=== PATIENT | female | born 2005 | race African-American/Black ===

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

== ENCOUNTER 2023-02-04 21:19 | Inpatient (IN) | payer MEDICAID, OTHER ==
--- NOTE | 2023-02-04 22:45 | ED ---
General Adult HPI - General Chief complaint: Psychiatric Symptoms Stated complaint: mental Health issues Time Seen by Provider: 02/04/23 22:11 Source: patient, RN notes reviewed Mode of arrival: ambulatory Limitations: no limitations - History of Present Illness Initial comments: 17-year-old female presents to the emergency department for chief complaint of mental health issues. She states that she has a history of pressure for which she is not taking any medications. She states that she has been hospitalized many times for her mental health. She reports worsening depression for the past 2 weeks. She reports suicidal ideation for the past 3-4 days without plan. Patient admits to self harm. Denies hallucinations, delusions. Denies fevers, c [place], shortness of breath, chest pain, abdominal pain. She reports having a bad reaction to Depakote. - Related Data Home Medications Medication Instructions Recorded Confirmed [place] 1 tab PO DAILY 02/04/23 02/04/23 Previous Rx's Medication Instructions Recorded Venlafaxine HCl ER [Effexor XR] 75 mg PO HS 7 Days #7 cap 02/09/23 cloNIDine HCL [Catapres] 0.1 mg PO BID 7 Days #14 tab 02/09/23 Allergies Allergy/AdvReac Type Severity Reaction Status Date / Time gluten AdvReac Abdominal Verified 02/05/23 04:38 Pain lactose AdvReac Abdominal Verified 02/05/23 04:38 Pain Review of Systems ROS Statement: Those systems with pertinent positive or pertinent negative responses have been documented in the HPI. ROS Other: All systems not noted in ROS Statement are negative. Past Medical History Past Medical History: No Reported History Additional Past Medical History / Comment(s): conduct disorder, mood disorder History of Any Multi-Drug Resistant Organisms: None Reported Past Surgical History: No Surgical Hx Reported Past Psychological History: ADD/ADHD, Anxiety, Bipolar, PTSD Smoking Status: Never smoker Past Alcohol Use History: None Reported Past Drug Use History: None Reported General Exam Limitations: no limitations General appearance: alert, in no apparent distress Head exam: Present: atraumatic, normocephalic, normal inspection Eye exam: Present: normal appearance, PERRL, EOMI. Absent: scleral icterus, conjunctival injection, periorbital swelling ENT exam: Present: normal exam, mucous membranes moist Neck exam: Present: normal inspection. Absent: tenderness, meningismus, lymphadenopathy Respiratory exam: Present: normal lung sounds bilaterally. Absent: respiratory distress, wheezes, rales, rhonchi, stridor Cardiovascular Exam: Present: regular rate, normal rhythm, normal heart sounds. Absent: systolic murmur, diastolic murmur, rubs, gallop, clicks GI/Abdominal exam: Present: soft, normal bowel sounds. Absent: distended, tenderness, guarding, rebound, rigid Extremities exam: Present: full ROM, normal capillary refill, other (abrasions to left arm from self harm) Back exam: Present: normal inspection Neurological exam: Present: alert, oriented X3 Psychiatric exam: Present: depressed Skin exam: Present: warm, dry, normal color, abrasion (left arm). Absent: rash Course Vital Signs 02/04/23 02/05/23 21:34 02:03 Temperature 98.4 F 97.8 F Pulse Rate 82 Pulse Rate [ 73 Right Sitting] Respiratory 18 18 Rate Blood Pressure 134/86 Blood Pressure 121/73 [Right Arm Sitting] O2 Sat by Pulse 99 99 Oximetry Medical Decision Making - Medical Decision Making Was pt. sent in by a medical professional or institution (, PA, DIRECTOR OF REGULATORY AFFAIRS, urgent care, hospital, or fci...) When possible be specific @ -No Did you speak to anyone other than the patient for history (EMS, parent, family, police, friend...)? What history was obtained from this source @ -No Did you review nursing and triage notes (agree or disagree)? Why? @ -I reviewed and agree with nursing and triage notes Were old charts reviewed (outside hosp., previous admission, EMS record, old EKG, old radiological studies, urgent care reports/EKG's, fci records)? Report findings @ -No old charts were reviewed Differential Diagnosis (chest pain, altered mental status, abdominal pain women, abdominal pain men, vaginal bleeding, weakness, fever, dyspnea, syncope, headache, dizziness, GI bleed, back pain, seizure, CVA, palpatations, mental health, musculoskeletal)? @ -Differential Mental Health Depression, anxiety, bipolar, psychosis, schizophrenia, borderline personality, situational depression, adjustment disorder, behavioral disorder, brain tumor, malingering, substance abuse, encephalopathy, medication reaction, dementia, hypothyroidism, degenerative neurologic disorder, lupus.... This is not meant to be all-inclusive list EKG interpreted by me (3pts min.). @ -None X-rays interpreted by me (1pt min.). @ -None done CT interpreted by me (1pt min.). @ -None done U/S interpreted by me (1pt. min.). @ -None done What testing was considered but not performed or refused? (CT, X-rays, U/S, labs)? Why? @ -None What meds were considered but not given or refused? Why? @ -None Did you discuss the management of the patient with other professionals (professionals i.e. , PA, DIRECTOR OF REGULATORY AFFAIRS, lab, RT, psych nurse, sexual assault social worker, endless belt finisher, teacher, chief lifestyle officer, patient case coordinator)? Give summary @ -No Was smoking cessation discussed for >3mins.? @ -No Was critical care preformed (if so, how long)? @ -No Were there social determinants of health that impacted care today? How? (Homelessness, low income, unemployed, alcoholism, drug addiction, transportation, low edu. Level, literacy, decrease access to med. care, usp, rehab)? @ -No Was there de-escalation of care discussed even if they declined (Discuss DNR or withdrawal of care, Hospice)? DNR status @ -No What co-morbidities impacted this encounter? (DM, HTN, Smoking, COPD, CAD, Cancer, CVA, ARF, Chemo, Hep., AIDS, mental health diagnosis, sleep apnea, morbid obesity)? @ -None Was patient admitted / discharged? Hospital course, mention meds given and route, prescriptions, significant lab abnormalities, going to OR and other pertinent info. @ -Patient presented to the emergency department with worsening mental health issues 2 weeks and suicidal ideation 3-4 days. Patient has a history of self- harm and has multiple abrasions on her left arm. She reports multiple Hospital in the past for her mental health. Patient is not having any concerning physical symptoms at this time including shortness of breath, chest pain, abdominal pain, fever. She takes oral contraceptive pills but no other daily medications. Vital signs stable. Patient is awaiting EPS evaluation. Patient admitted inpatient to this hospital. Undiagnosed new problem with uncertain prognosis? @ -No Drug Therapy requiring intensive monitoring for toxicity (Heparin, Nitro, Insulin, Cardizem)? @ -No Were any procedures done? @ -No Diagnosis/symptom? @ -suicidal ideation Acute, or Chronic, or Acute on Chronic? @ -Acute Uncomplicated (without systemic symptoms) or Complicated (systemic symptoms)? @ - Side effects of treatment? @ -No Exacerbation, Progression, or Severe Exacerbation? @ -No Poses a threat to life or bodily function? How? (Chest pain, USA, IA, pneumonia, PE, COPD, DKA, ARF, appy, cholecystitis, CVA, Diverticulitis, Homicidal, Suicidal, threat to staff... and all critical care pts) @ -Yes suicidal - Lab Data Result diagrams: 02/06/23 08:26 02/06/23 08:26 Lab Results 02/05/23 02/05/23 02/05/23 Range/Units 00:13 00:13 00:13 Urine Color Colorless Urine Appearance Clear (Clear) Urine pH 6.0 (5.0-8.0) Ur Specific [place] 1.004 (1.001-1.035) Urine Protein Negative (Negative) Urine Glucose (UA) Negative (Negative) Urine Ketones Negative (Negative) Urine Blood Negative (Negative) Urine Nitrite Negative (Negative) Urine Bilirubin Negative (Negative) Urine Urobilinogen 0.2 (<2.0) mg/dL Ur Leukocyte Esterase Negative (Negative) Urine HCG, Qual Not Detected (Not Detectd) Urine Opiates Screen Not Detected (NotDetected) Ur Oxycodone Screen Not Detected (NotDetected) Urine Methadone Screen Not Detected (NotDetected) Ur Propoxyphene Screen Not Detected (NotDetected) Ur Barbiturates Screen Not Detected (NotDetected) U Tricyclic Antidepress Not Detected (NotDetected) Ur Phencyclidine Scrn Not Detected (NotDetected) Ur Amphetamines Screen Not Detected (NotDetected) U Methamphetamines Scrn Not Detected (NotDetected) U Benzodiazepines Scrn Not Detected (NotDetected) Urine Cocaine Screen Not Detected (NotDetected) U Marijuana (THC) Screen Not Detected (NotDetected) Coronavirus (PCR) (Not Detectd) 02/05/23 Range/Units 01:08 Urine Color Urine Appearance (Clear) Urine pH (5.0-8.0) Ur Specific [place] (1.001-1.035) Urine Protein (Negative) Urine Glucose (UA) (Negative) Urine Ketones (Negative) Urine Blood (Negative) Urine Nitrite (Negative) Urine Bilirubin (Negative) Urine Urobilinogen (<2.0) mg/dL Ur Leukocyte Esterase (Negative) Urine HCG, Qual (Not Detectd) Urine Opiates Screen (NotDetected) Ur Oxycodone Screen (NotDetected) Urine Methadone Screen (NotDetected) Ur Propoxyphene Screen (NotDetected) Ur Barbiturates Screen (NotDetected) U Tricyclic Antidepress (NotDetected) Ur Phencyclidine Scrn (NotDetected) Ur Amphetamines Screen (NotDetected) U Methamphetamines Scrn (NotDetected) U Benzodiazepines Scrn (NotDetected) Urine Cocaine Screen (NotDetected) U Marijuana (THC) Screen (NotDetected) Coronavirus (PCR) Not Detected (Not Detectd) Disposition Clinical Impression: Suicidal ideation Disposition: ADMITTED IP TO THIS [facility] Condition: Stable Is patient prescribed a controlled substance at d/c from ED?: No
[2023-02-05 00:44] LABS: Amphetamine Screen,Urine Not Detected (NotDetected); Barbiturate Screen,Urine Not Detected (NotDetected); Benzodiazepines Screen,Urine Not Detected (NotDetected); Cocaine Screen,Urine Not Detected (NotDetected); Methadone Screen, Urine Not Detected (NotDetected); Opiate Screen,Urine Not Detected (NotDetected); Oxycodone Screen, Urine Not Detected (NotDetected); Phencyclidine Screen,Urine Not Detected (NotDetected); Tricyclic Antidepressant,Urine Not Detected (NotDetected); Urn Cannabinoid Scrn Not Detected (NotDetected)
[2023-02-05] MEDS ORDERED: hydrOXYzine HCL 50 MG/ML 1 ML VIAL IM PRN (02:04)
[2023-02-05] MEDS ORDERED: OLANZapine 5 MG TAB PO PRN (02:04)
[2023-02-05] MEDS ORDERED: ACETAMINOPHEN TAB 325 MG TAB PO PRN (02:04)
[2023-02-05] MEDS ORDERED: IBUPROFEN 600 MG TAB PO PRN (02:04)
[2023-02-05] MEDS ORDERED: hydrOXYzine HCL 25 MG TAB PO PRN (02:04)
[2023-02-05] MEDS ORDERED: OLANZapine 10 MG VIAL IM PRN (02:08)
[2023-02-05 02:42] LABS: Appearance,Urine Clear (Clear); Bilirubin,Urine Negative (Negative); Blood,Urine Negative (Negative); Color,Urine Colorless; Glucose,Urine (UA) Negative (Negative); Ketones,Urine Negative (Negative); Leukocyte Esterase,Urine Negative (Negative); Nitrite,Urine Negative (Negative); Protein,Urine Negative (Negative); Specific Gravity,Urine 1.004 (1.001-1.035); Urobilinogen,Urine 0.2 mg/dL (<2.0)
[2023-02-05] MEDS ORDERED: ALTAVERA PO SCH (09:00)
[2023-02-05] MEDS: MAG HYDROX/AL HYDROX/SIMETH 30 ML CUP PO PRN (09:18)
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
[2023-02-05] MEDS: MAGNESIUM HYDROXIDE 2,400 MG/30 ML CUP PO PRN (11:44)
[2023-02-05] MEDS: ALTAVERA PO SCH (11:45)
[2023-02-05] MEDS: cloNIDine HCL 0.1 MG TAB PO SCH (21:10)
[2023-02-05] MEDS: VENLAFAXINE HCL ER 75 MG CAP PO SCH (21:10)
--- NOTE | 2023-02-06 03:43 | P.PN ---
Progress Note - Text Progress Note Date: 02/06/23 refused medical evaluation
[2023-02-06] MEDS: cloNIDine HCL 0.1 MG TAB PO SCH ×2 (09:05→20:41)
[2023-02-06] MEDS: ALTAVERA PO SCH (09:06)
[2023-02-06 09:07] LABS: ALT 18 U/L (4-34); AST 22 U/L (14-36); African American GFR (CKD) >90 (>60 ml/min/1.73 sqM); Albumin 4.2 g/dL (3.5-5.0); Alkaline Phosphatase 49 U/L (38-126); Anion Gap 8 mmol/L; Blood Urea Nitrogen 14 mg/dL (7-17); Calcium 9.1 mg/dL (8.4-10.2); Carbon Dioxide 25 mmol/L (22-30); Chloride 102 mmol/L (98-107); Glucose 92 mg/dL (74-99); Non-African American GFR(CKD) >90 (>60 ml/min/1.73 sqM); Potassium 4.4 mmol/L (3.5-5.1); Sodium 135 mmol/L (137-145); Total Bilirubin 0.6 mg/dL (0.2-1.3); Total Protein 7.4 g/dL (6.3-8.2)
[2023-02-06 09:15] LABS: Basophils % (A) 1 %; Eosinophils % (A) 1 %; HCT 42.7 % (34.0-46.0); HGB 14.5 gm/dL (11.4-16.0); Lymphocytes # (A) 2.4 k/uL (1.0-4.8); Lymphocytes % (A) 43 %; MCH 32.7 pg (25.0-35.0); MCHC 33.8 g/dL (31.0-37.0); MCV 96.7 fL (80.0-100.0); Mean Platelet Volume 11.8; Monocytes # (A) 0.2 k/uL (0-1.0); Monocytes % (A) 4 %; Neutrophils # (A) 2.8 k/uL (1.3-7.7); Neutrophils % (A) 50 %; Platelet Count 179 k/uL (150-450); RBC 4.42 m/uL (3.80-5.40); RDW 12.6 % (11.5-15.5); WBC 5.6 k/uL (4.0-11.0)
--- NOTE | 2023-02-06 11:13 | P.PN ---
Subjective Progress Note Date: 02/06/23 Principal diagnosis: IMPRESSIONS: Major depressive disorder Posttraumatic stress disorder Cluster B personality disorder - borderline personality disorder and histrionic personality disorder Patient Name: Codi Kwon Date of : [birth year] Patient Status: Inpatient Attending Provider: Dave Nunez Subjective data: Patient admits that she has a history of cutting on herself for a long period of time She says that she currently lives with her boyfriend and is not sure as to why he continues to live with her She says that is normal and does not have any medical problems She says that she usually spends most of her time sitting around and brooding She says that she needs to change but has never worked on making things any different for herself She admits that she never finished high school and has no intention on working She does not know what she wants to do for the future She admits that she has been multiple suicide attempts and that she's had about 15 hospitalizations in the past She said that she has not seen her therapist for the last 8 months and she does start taking more interest in getting herself better MENTAL STATUS EXAM: General Appearance: Patient appears to be stated age is alert, directable, and attempts to cooperate. Patient appears to have slightly disheveled hygiene and grooming. Curly hair. Nose piercing. Multiple superficial cuts on her left arm at various stages of healing. Behavior: Patient is seated without any agitated behavior. Normal psychomotor activity. Eye contact is appropriate. Speech: Patient's speech is fluent and nonpressured. Hyperverbal. Interruptible. Mood/Affect: Patient reports their mood is depressed, affect is incongruent and appears to be expansive and bright. Nonchalant. Suicidality/Homicidality: Patient reports chronic suicidal ideation. She reports no intention or plan at this time. She denies any homicidal ideation, intention, and/or plan. Perceptions: Patient denies any visual hallucinations and denies any auditory hallucinations Though content/process: There is no evidence of any delusional thought content and thought process is linear and goal-directed. Memory and concentration: AOX3, grossly intact for the purposes of this session. Judgment and insight: poor STRENGTHS/WEAKNESSES: Strength is that the patient is resilient. Weakness is that the patient has poor frustration tolerance and impulse control. INTELLECT: average IMPRESSIONS: Major depressive disorder Posttraumatic stress disorder Cluster B personality disorder - suspect makes of borderline personality disorder and histrionic personality disorder PLAN: -Patient is admitted under voluntary status to MHU for stabilization of psychiat ness symptoms and safety. Patient signed adult voluntary form and medication consent and is placed in patient's chart. -Medications : Catapres 0.1 mg by mouth twice a day for PTSD Effexor XR 75 mg by mouth at bedtime for PTSD/depression/anxiety -Zyprexa and Vistaril PRN for agitation/aggression -Patient was informed of the risks, benefits and side effects of the medication and patient verbally consented to taking the medications. Patient signed med consent form and was placed in chart. -Internal Medicine consult to perform medical evaluation and physical. -SW on board for discharge planning. Encourage patient to participate in groups to work on coping skills. Thong Howell M.D. 02/06/2023 Objective - Vital Signs Vital signs: Vital Signs Temp 98.1 F 02/06/23 06:31 Pulse 59 L 02/06/23 06:31 Resp 17 02/06/23 06:31 BP 121/73 02/05/23 02:03 Pulse Ox 99 02/06/23 06:31 FiO2 - Labs CBC & Chem 7: 02/06/23 08:26 02/06/23 08:26 Labs: Abnormal Lab Results - Last 24 Hours (Table) 02/06/23 Range/Units 08:26 Sodium 135 L (137-145) mmol/L
[2023-02-06 11:50] LABS: Large Platelets Present; RBC Morphology Normal
[2023-02-06 15:01] VITALS: BMI 19.5
[2023-02-06 15:26] LABS: Chol/HDL Ratio 1.71 Ratio; LDL Cholesterol,Calculated 41.1 mg/dL (0.0-131.0); VLDL Calculation 10.52 mg/dL (5.00-40.00)
[2023-02-06] MEDS: VENLAFAXINE HCL ER 75 MG CAP PO SCH (20:41)
--- NOTE | 2023-02-07 03:03 | P.CONS ---
History of Present Illness - Reason for Consult Consult date: 02/07/23 - History of Present Illness The patient is a 17-year-old female with no known PMH who had presented to the emergency room with complaints of depression and suicidal ideation. The patient was admitted to the mental health unit where she was seen and evaluated the mental health unit RN present for the entire time. The patient reports that she has been having a lot of stress recently due to her family. She reports mult iple family problems that she reports that she does not wish to state. She denied any physical complaints however. She denied experiencing chest discomfort, shortness of breath, fever, chills, cough, nausea, vomiting, abdominal pain, diarrhea. The patient denied alcohol, substance, or tobacco use Review of systems: Pertinent positives and negatives as discussed in HPI, a complete review of sys tems was performed and all other systems are negative. Physical examination: General: non toxic, no distress, appears at stated age, normal weight Derm: no unusual rashes/lesions, no unusual ecchymoses, warm, dry Head: atraumatic, normocephalic, symmetric Eyes: EOMI, no lid lag, anicteric sclera ENT: Nose and ears atraumatic, no thrush, no pharyngeal erythema Neck: trachea midline, supple Mouth: no lip lesion, mucus membranes moist Cardiovascular: S1S2 reg, no murmur, no edema Lungs: CTA bilateral, no rhonchi, no rales , no accessory muscle use Abdominal: soft, nontender to palpation, no guarding Ext: no gross muscle atrophy, no contractures, Neuro: No gross focal neuro deficits noted Psych: Alert, oriented, appropriate affect Assessment: Depression and suicidal ideation Imaging: None performed Plan: Defer management to the primary psychiatry service Thank you for allowing us to participate in the care of this patient. We will follow peripherally. Do not hesitate to contact us with questions. Someone can be reached from the [facility] hospitalist group at all hours of the day at [phone]. Past Medical History Past Medical History: No Reported History Additional Past Medical History / Comment(s): conduct disorder, mood disorder History of Any Multi-Drug Resistant Organisms: None Reported Past Surgical History: No Surgical Hx Reported Past Psychological History: ADD/ADHD, Anxiety, Bipolar, PTSD Smoking Status: Never smoker Past Alcohol Use History: None Reported Past Drug Use History: None Reported Medications and Allergies Home Medications Medication Instructions Recorded Confirmed Type [place] 1 tab PO DAILY 02/04/23 02/04/23 History Allergies Allergy/AdvReac Type Severity Reaction Status Date / Time gluten AdvReac Abdominal Verified 02/05/23 04:38 Pain lactose AdvReac Abdominal Verified 02/05/23 04:38 Pain Physical Exam Vitals: Vital Signs Temp Pulse Resp Pulse Ox 02/06/23 06:31 98.1 F 59 L 17 99 Intake and Output 02/06/23 02/06/23 02/07/23 14:59 22:59 06:59 Other: Weight 56.5 kg Results CBC & Chem 7: 02/06/23 08:26 02/06/23 08:26 Labs: Abnormal Lab Results - Last 24 Hours (Table) 02/06/23 Range/Units 08:26 Sodium 135 L (137-145) mmol/L HDL Cholesterol 72.40 H (40.00-60.00) mg/dL
[2023-02-07] MEDS: ALTAVERA PO SCH (08:59)
[2023-02-07] MEDS: cloNIDine HCL 0.1 MG TAB PO SCH ×2 (09:00→20:40)
--- NOTE | 2023-02-07 09:50 | P.PN ---
Subjective Progress Note Date: 02/07/23 Principal diagnosis: IMPRESSIONS: Major depressive disorder Posttraumatic stress disorder Cluster B personality disorder - borderline personality disorder and histrionic personality disorder Patient Name: Codi Kwon Date of : [birth year] Patient Status: Inpatient Attending Provider: Dave Nunez Subjective data: Patient admits that she feels better however when asked if this is a good sign and that she is ready for discharge soon patient states that "I wish" Patient says that she needs few more days to put herself together She also admits that she has a eating disorder and that she tends to not eating enough but denies any abuse of laxatives or exercising She denies any binging and purging behavior Remained superficial and withdrawn MENTAL STATUS EXAM: General Appearance: Patient appears to be stated age is alert, directable, and attempts to cooperate. Patient appears to have slightly disheveled hygiene and grooming. Curly hair. Nose piercing. Multiple superficial cuts on her left arm at various stages of healing. Behavior: Patient is seated without any agitated behavior. Normal psychomotor activity. Eye contact is appropriate. Speech: Patient's speech is fluent and nonpressured. Hyperverbal. Interruptible. Mood/Affect: Patient reports their mood is depressed, affect is incongruent and appears to be expansive and bright. Nonchalant. Suicidality/Homicidality: Patient reports chronic suicidal ideation. She reports no intention or plan at this time. She denies any homicidal ideation, intention, and/or plan. Perceptions: Patient denies any visual hallucinations and denies any auditory hallucinations Though content/process: There is no evidence of any delusional thought content and thought process is linear and goal-directed. Memory and concentration: AOX3, grossly intact for the purposes of this session. Judgment and insight: poor STRENGTHS/WEAKNESSES: Strength is that the patient is resilient. Weakness is that the patient has poor frustration tolerance and impulse control. 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 Patient signed adult voluntary form and medication consent and is placed in patient's chart. -Medications : Catapres 0.1 mg by mouth twice a day for PTSD Effexor XR 75 mg by mouth at bedtime for PTSD/depression/anxiety -Zyprexa and Vistaril PRN for agitation/aggression -Patient was informed of the risks, benefits and side effects of the medication and patient verbally consented to taking the medications. Patient signed med consent form and was placed in chart. -Internal Medicine consult to perform medical evaluation and physical. -SW on board for discharge planning. Encourage patient to participate in groups to work on coping skills. Thong Howell M.D. 02/07/2023 Objective - Vital Signs Vital signs: Vital Signs Temp 97.5 F L 02/07/23 06:52 Pulse 60 02/07/23 09:00 Resp 16 02/07/23 06:52 BP 106/68 02/07/23 09:00 Pulse Ox 99 02/07/23 06:52 FiO2 Intake & Output 02/06/23 02/07/23 02/07/23 18:59 06:59 18:59 Weight 56.5 kg - Labs CBC & Chem 7: 02/06/23 08:26 02/06/23 08:26 Labs: Abnormal Lab Results - Last 24 Hours (Table) 02/06/23 Range/Units 08:26 HDL Cholesterol 72.40 H (40.00-60.00) mg/dL
[2023-02-07] MEDS: MAGNESIUM HYDROXIDE 2,400 MG/30 ML CUP PO PRN (14:42)
[2023-02-07] MEDS: MAG HYDROX/AL HYDROX/SIMETH 30 ML CUP PO PRN (18:33)
[2023-02-07] MEDS: VENLAFAXINE HCL ER 75 MG CAP PO SCH (20:40)
[2023-02-08 06:32] VITALS: TEMP 97.8
[2023-02-08] MEDS: cloNIDine HCL 0.1 MG TAB PO SCH ×2 (08:45→21:46)
[2023-02-08] MEDS: ALTAVERA PO SCH (08:46)
--- NOTE | 2023-02-08 11:28 | P.PN ---
Progress Note - Text Progress Note Date: 02/08/23 Interval History: Patient was seen resting in bed and was directable and agreeable to speak with writer editor in the office., The patient is not reporting any suicidal or homicidal ideation, intention, and/or plan. She is not reporting any auditory or visual hallucinations. She denies any paranoia or other delusions. She reports feeling fatigued due to the medications. Furthermore, the patient reports that she has a larger pupil on her right eye compared to her left. This can be a side effect of her antidepressant medication. She is denying any blurry vision or headache. She states that she has been able to speak with her mother as well as her boyfriend. She states that they are still together. She is in agreement with the diagnosis of borderline personality disorder. Mental Status Exam: General Appearance: Patient appears to be stated age is alert, directable, and cooperative. Behavior: Patient is calmly seated without any agitated behavior. Speech: Patient's speech is fluent and nonpressured. Mood/Affect: Mood is improving mildly, affect is congruent and expansive. Suicidality/Homicidality: Patient reports no suicidal or homicidal ideation. Perceptions: Patient denies any visual hallucinations and denies any auditory hallucinations Though content/process: There is no evidence of any delusional thought content and thought process is linear and goal-directed. Memory and concentration: AOX3, grossly intact for the purposes of this session Judgment and insight: Improving mildly Vital Signs Temp 97.8 F 02/08/23 06:32 Pulse 61 02/08/23 08:47 Resp 16 02/08/23 06:32 BP 127/76 02/08/23 08:47 Pulse Ox 99 02/08/23 06:32 FiO2 Assessment Major depressive disorder Posttraumatic stress disorder Cluster B personality disorder -suspect a mix of borderline personality disorder and histrionic personality disorder Plan: -Patient continues to meet criteria for inpatient psychiatric admission for symptom stabilization and safety. Patient has signed adult voluntary form and medication consent and was placed in patient's chart. -Approximately 20 minutes are spent firing the patient with therapy. -Medications: Catapres 0.1 mg by mouth twice a day for PTSD Effexor XR 75 mg by mouth at bedtime for PTSD/depression/anxiety -Will hold on titration of Effexor due to anisicoria. -When necessary Zyprexa and Vistaril for agitation/aggression. -SW on board for discharge planning. Encouraged the patient to participate in milieu.
[2023-02-08] MEDS: VENLAFAXINE HCL ER 75 MG CAP PO SCH (21:46)
[2023-02-09 06:53] VITALS: BP 108/67; PULSE 88; RESP 17
[2023-02-09] MEDS: cloNIDine HCL 0.1 MG TAB PO SCH (08:48)
[2023-02-09] MEDS: ALTAVERA PO SCH (08:48)
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
[2023-02-09] MEDS: MAG HYDROX/AL HYDROX/SIMETH 30 ML CUP PO PRN (12:45)
== END 2023-02-09 14:44 | disposition home or self-care (01) | DRG 754 ==
LOC: EC 21:19 → 3MHU 02-05 02:01
PROVIDERS: ADMIT Psychiatry & Neurology Psychiatry; ATTEND Psychiatry & Neurology Psychiatry
DX: F32.9 Major depressive disorder, single episode, unspecified (principal); R45.851 Suicidal ideations; Z20.822 Contact with and (suspected) exposure to COVID-19; F43.10 Post-traumatic stress disorder, unspecified; F60.3 Borderline personality disorder; K90.41 Non-celiac gluten sensitivity; F60.4 Histrionic personality disorder; F90.9 Attention-deficit hyperactivity disorder, unspecified type; Z76.5 Malingerer [conscious simulation]; Z79.899 Other long term (current) drug therapy; Z91.410 Personal history of adult physical and sexual abuse; Z91.51 Personal history of suicidal behavior; Z91.52 Personal history of nonsuicidal self-harm; Z91.011 Allergy to milk products
CPT/HCPCS: 80053; 80061; 80306; 81003; 81025; 82075; 83036; 84443; 85025; 87635; 99285

== ENCOUNTER 2023-04-29 11:40 | Observation (INO) | payer OTHER ==
--- NOTE | 2023-04-29 12:52 | ED ---
Psych HPI - General Chief Complaint: Psychiatric Symptoms Stated Complaint: mental health Time Seen by Provider: 04/29/23 12:30 Source: patient, RN notes reviewed, old records reviewed, Caregiver Mode of arrival: ambulatory Limitations: no limitations - History of Present Illness Initial Comments: This is a 18-year-old female DF for evaluation of psychiatric illness. Patient Mariam was feeling some thoughts of severe depression. MD Complaint: suicidal ideation, feels depressed -: days(s) Associated Psychiatric Symptoms: depression, suicidal ideation History of same: Yes Quality: constant Improves With: none Worsens With: none Context: not taking psychiatric medications, significant life stressor Associated Symptoms: denies other symptoms - Related Data Home Medications Medication Instructions Recorded Confirmed [place] 1 tab PO DAILY 02/04/23 04/29/23 Venlafaxine HCl [Effexor XR] 150 mg PO DAILY 04/29/23 04/29/23 Previous Rx's Medication Instructions Recorded cloNIDine HCL [Catapres] 0.1 mg PO BID 7 Days #14 tab 02/09/23 Allergies Allergy/AdvReac Type Severity Reaction Status Date / Time gluten AdvReac Abdominal Verified 04/29/23 14:11 Pain lactose AdvReac Abdominal Verified 04/29/23 14:11 Pain Review of Systems ROS Statement: Those systems with pertinent positive or pertinent negative responses have been documented in the HPI. ROS Other: All systems not noted in ROS Statement are negative. Past Medical History Past Medical History: No Reported History Additional Past Medical History / Comment(s): conduct disorder, mood disorder History of Any Multi-Drug Resistant Organisms: None Reported Past Surgical History: No Surgical Hx Reported Past Psychological History: ADD/ADHD, Anxiety, Bipolar, PTSD Smoking Status: Never smoker Past Alcohol Use History: None Reported Past Drug Use History: None Reported General Exam Limitations: no limitations General appearance: alert, in no apparent distress Head exam: Present: atraumatic, normocephalic, normal inspection Eye exam: Present: normal appearance, PERRL, EOMI. Absent: scleral icterus, conjunctival injection, periorbital swelling ENT exam: Present: normal exam, mucous membranes moist Neck exam: Present: normal inspection. Absent: tenderness, meningismus, lymphadenopathy Respiratory exam: Present: normal lung sounds bilaterally. Absent: respiratory distress, wheezes, rales, rhonchi, stridor Cardiovascular Exam: Present: regular rate, normal rhythm, normal heart sounds. Absent: systolic murmur, diastolic murmur, rubs, gallop, clicks GI/Abdominal exam: Present: soft, normal bowel sounds. Absent: distended, tenderness, guarding, rebound, rigid Extremities exam: Present: normal inspection, full ROM, normal capillary refill. Absent: tenderness, pedal edema, joint swelling, calf tenderness Back exam: Present: normal inspection Neurological exam: Present: alert, oriented X3, CN II-XII intact Psychiatric exam: Present: normal affect, normal mood Skin exam: Present: warm, dry, intact, normal color. Absent: rash Course Vital Signs 04/29/23 04/30/23 04/30/23 11:42 06:15 08:00 Temperature 97.7 F 97.7 F 98.2 F Pulse Rate 86 66 82 Respiratory 16 18 17 Rate Blood Pressure 126/87 112/68 131/82 O2 Sat by Pulse 97 98 98 Oximetry - Reevaluation(s) Reevaluation #1: 04/29/23 13:11 Medical records reviewed Reevaluation #2: 04/29/23 13:11 Medical clear for psychiatric evaluation Medical Decision Making - Medical Decision Making 18 female seen By psychiatry here in the ER, patient will be admitted for inpatient psychiatric evaluation and treatment - Lab Data Result diagrams: 04/29/23 16:30 04/29/23 19:00 Lab Results 04/29/23 04/29/23 04/29/23 Range/Units 13:24 13:24 13:25 WBC (4.0-11.0) k/uL RBC (3.80-5.40) m/uL Hgb (11.4-16.0) gm/dL Hct (34.0-46.0) % MCV (80.0-100.0) fL MCH (25.0-35.0) pg MCHC (31.0-37.0) g/dL RDW (11.5-15.5) % Plt Count (150-450) k/uL MPV Sodium (137-145) mmol/L Potassium (3.5-5.1) mmol/L Chloride (98-107) mmol/L Carbon Dioxide (22-30) mmol/L Anion Gap mmol/L BUN (7-17) mg/dL Creatinine (0.52-1.04) mg/dL Est GFR (CKD-EPI)AfAm (>60 ml/min/1.73 sqM) Est GFR (CKD-EPI)NonAf (>60 ml/min/1.73 sqM) Glucose (74-99) mg/dL Calcium (8.4-10.2) mg/dL Urine Color Colorless Urine Appearance Clear (Clear) Urine pH 6.0 (5.0-8.0) Ur Specific [place] 1.004 (1.001-1.035) Urine Protein Negative (Negative) Urine Glucose (UA) Negative (Negative) Urine Ketones Negative (Negative) Urine Blood Negative (Negative) Urine Nitrite Negative (Negative) Urine Bilirubin Negative (Negative) Urine Urobilinogen <2.0 (<2.0) mg/dL Ur Leukocyte Esterase Negative (Negative) Urine HCG, Qual Not Detected (Not Detectd) Urine Opiates Screen Not Detected (NotDetected) Ur Oxycodone Screen Not Detected (NotDetected) Urine Methadone Screen Not Detected (NotDetected) Ur Propoxyphene Screen Not Detected (NotDetected) Ur Barbiturates Screen Not Detected (NotDetected) U Tricyclic Antidepress Not Detected (NotDetected) Ur Phencyclidine Scrn Not Detected (NotDetected) Ur Amphetamines Screen Not Detected (NotDetected) U Methamphetamines Scrn Not Detected (NotDetected) U Benzodiazepines Scrn Not Detected (NotDetected) Urine Cocaine Screen Not Detected (NotDetected) U Marijuana (THC) Screen Not Detected (NotDetected) Coronavirus (PCR) (Not Detectd) Influenza Type A (PCR) (Not Detectd) Influenza Type B (PCR) (Not Detectd) RSV (PCR) (Not Detectd) SARS-CoV-2 (PCR) (Not Detectd) 04/29/23 04/29/23 04/29/23 Range/Units 16:30 16:30 19:00 WBC 5.3 (4.0-11.0) k/uL RBC 4.79 (3.80-5.40) m/uL Hgb 15.0 (11.4-16.0) gm/dL Hct 45.0 (34.0-46.0) % MCV 94.0 (80.0-100.0) fL MCH 31.4 (25.0-35.0) pg MCHC 33.4 (31.0-37.0) g/dL RDW 12.2 (11.5-15.5) % Plt Count 153 (150-450) k/uL MPV 12.9 Sodium 137 (137-145) mmol/L Potassium 3.9 (3.5-5.1) mmol/L Chloride 103 (98-107) mmol/L Carbon Dioxide 25 (22-30) mmol/L Anion Gap 9 mmol/L BUN 10 (7-17) mg/dL Creatinine 0.72 (0.52-1.04) mg/dL Est GFR (CKD-EPI)AfAm >90 (>60 ml/min/1.73 sqM) Est GFR (CKD-EPI)NonAf >90 (>60 ml/min/1.73 sqM) Glucose 130 H (74-99) mg/dL Calcium 9.2 (8.4-10.2) mg/dL Urine Color Urine Appearance (Clear) Urine pH (5.0-8.0) Ur Specific [place] (1.001-1.035) Urine Protein (Negative) Urine Glucose (UA) (Negative) Urine Ketones (Negative) Urine Blood (Negative) Urine Nitrite (Negative) Urine Bilirubin (Negative) Urine Urobilinogen (<2.0) mg/dL Ur Leukocyte Esterase (Negative) Urine HCG, Qual (Not Detectd) Urine Opiates Screen (NotDetected) Ur Oxycodone Screen (NotDetected) Urine Methadone Screen (NotDetected) Ur Propoxyphene Screen (NotDetected) Ur Barbiturates Screen (NotDetected) U Tricyclic Antidepress (NotDetected) Ur Phencyclidine Scrn (NotDetected) Ur Amphetamines Screen (NotDetected) U Methamphetamines Scrn (NotDetected) U Benzodiazepines Scrn (NotDetected) Urine Cocaine Screen (NotDetected) U Marijuana (THC) Screen (NotDetected) Coronavirus (PCR) Detected A (Not Detectd) Influenza Type A (PCR) (Not Detectd) Influenza Type B (PCR) (Not Detectd) RSV (PCR) (Not Detectd) SARS-CoV-2 (PCR) (Not Detectd) 04/29/23 Range/Units 19:19 WBC (4.0-11.0) k/uL RBC (3.80-5.40) m/uL Hgb (11.4-16.0) gm/dL Hct (34.0-46.0) % MCV (80.0-100.0) fL MCH (25.0-35.0) pg MCHC (31.0-37.0) g/dL RDW (11.5-15.5) % Plt Count (150-450) k/uL MPV Sodium (137-145) mmol/L Potassium (3.5-5.1) mmol/L Chloride (98-107) mmol/L Carbon Dioxide (22-30) mmol/L Anion Gap mmol/L BUN (7-17) mg/dL Creatinine (0.52-1.04) mg/dL Est GFR (CKD-EPI)AfAm (>60 ml/min/1.73 sqM) Est GFR (CKD-EPI)NonAf (>60 ml/min/1.73 sqM) Glucose (74-99) mg/dL Calcium (8.4-10.2) mg/dL Urine Color Urine Appearance (Clear) Urine pH (5.0-8.0) Ur Specific [place] (1.001-1.035) Urine Protein (Negative) Urine Glucose (UA) (Negative) Urine Ketones (Negative) Urine Blood (Negative) Urine Nitrite (Negative) Urine Bilirubin (Negative) Urine Urobilinogen (<2.0) mg/dL Ur Leukocyte Esterase (Negative) Urine HCG, Qual (Not Detectd) Urine Opiates Screen (NotDetected) Ur Oxycodone Screen (NotDetected) Urine Methadone Screen (NotDetected) Ur Propoxyphene Screen (NotDetected) Ur Barbiturates Screen (NotDetected) U Tricyclic Antidepress (NotDetected) Ur Phencyclidine Scrn (NotDetected) Ur Amphetamines Screen (NotDetected) U Methamphetamines Scrn (NotDetected) U Benzodiazepines Scrn (NotDetected) Urine Cocaine Screen (NotDetected) U Marijuana (THC) Screen (NotDetected) Coronavirus (PCR) (Not Detectd) Influenza Type A (PCR) Not Detected (Not Detectd) Influenza Type B (PCR) Not Detected (Not Detectd) RSV (PCR) Not Detected (Not Detectd) SARS-CoV-2 (PCR) Detected A (Not Detectd) Disposition Clinical Impression: Major depressive disorder, Suicidal ideation, PTSD (post-traumatic stress disorder), Cluster B personality disorder, Coronavirus infection Disposition: ADMITTED IP TO THIS HOSP Condition: Fair Is patient prescribed a controlled substance at d/c from ED?: No Referrals: Geo Turk MD [Primary Care Provider] - 1-2 days
[2023-04-29 14:03] LABS: Appearance,Urine Clear (Clear); Bilirubin,Urine Negative (Negative); Blood,Urine Negative (Negative); Color,Urine Colorless; Glucose,Urine (UA) Negative (Negative); Ketones,Urine Negative (Negative); Leukocyte Esterase,Urine Negative (Negative); Nitrite,Urine Negative (Negative); Protein,Urine Negative (Negative); Specific Gravity,Urine 1.004 (1.001-1.035); Urobilinogen,Urine <2.0 mg/dL (<2.0)
[2023-04-29 14:13] LABS: Amphetamine Screen,Urine Not Detected (NotDetected); Barbiturate Screen,Urine Not Detected (NotDetected); Benzodiazepines Screen,Urine Not Detected (NotDetected); Cocaine Screen,Urine Not Detected (NotDetected); Methadone Screen, Urine Not Detected (NotDetected); Opiate Screen,Urine Not Detected (NotDetected); Oxycodone Screen, Urine Not Detected (NotDetected); Phencyclidine Screen,Urine Not Detected (NotDetected); Tricyclic Antidepressant,Urine Not Detected (NotDetected); Urn Cannabinoid Scrn Not Detected (NotDetected)
[2023-04-29 17:11] LABS: MCH 31.4 pg (25.0-35.0); MCHC 33.4 g/dL (31.0-37.0); Mean Platelet Volume 12.9; RBC 4.79 m/uL (3.80-5.40); RDW 12.2 % (11.5-15.5); WBC 5.3 k/uL (4.0-11.0)
[2023-04-29 18:19] LABS: Platelet Count 153 k/uL (150-450)
[2023-04-29 19:32] LABS: African American GFR (CKD) >90 (>60 ml/min/1.73 sqM); Anion Gap 9 mmol/L; Blood Urea Nitrogen 10 mg/dL (7-17); Calcium 9.2 mg/dL (8.4-10.2); Carbon Dioxide 25 mmol/L (22-30); Chloride 103 mmol/L (98-107); Glucose 130 mg/dL (74-99); Non-African American GFR(CKD) >90 (>60 ml/min/1.73 sqM); Potassium 3.9 mmol/L (3.5-5.1); Sodium 137 mmol/L (137-145)
[2023-04-30] MEDS ORDERED: BENZONATATE 100 MG CAP PO STA (04:28)
[2023-04-30] MEDS ORDERED: guaiFENesin-DM 600/30MG 1 EACH TAB.ER.12H PO STA (04:29)
[2023-04-30] MEDS ORDERED: cloNIDine HCL 0.1 MG TAB PO STA (04:29)
[2023-04-30] MEDS ORDERED: VENLAFAXINE HCL ER 150 MG CAP PO SCH (09:00)
[2023-04-30] MEDS: cloNIDine HCL 0.1 MG TAB PO SCH ×2 (09:06→20:19)
[2023-04-30] MEDS: ALTAVERA PO SCH (10:00)
[2023-04-30] MEDS ORDERED: traZODone HCL 50 MG TAB PO PRN (14:20)
[2023-04-30] MEDS ORDERED: haloperidoL 5 MG TAB PO PRN (14:31)
[2023-04-30] MEDS ORDERED: LORazepam 2 MG/ML INJ IM PRN (14:31)
[2023-04-30] MEDS ORDERED: LORazepam 1 MG TAB PO PRN (14:31)
[2023-04-30] MEDS ORDERED: HALOPERIDOL LACTATE 5 MG/ML 1 ML VIAL IM PRN (14:31)
--- NOTE | 2023-04-30 14:31 | P.CN ---
Psychiatric Consult - . Consult date: 04/30/23 Consult:: 04/30/23 13:51 IDENTIFYING DATA: This patient is a 18-year-old female currently lives with her boyfriend apartment, she is unemployed. REASON FOR REFERRAL: Psychiatry was consulted for "covid +, psych admitt" HISTORY OF PRESENT ILLNESS: The patient presented to the hospital on 04/29 complaining of severe depression and suicidal ideations. Patient's urine protein was negative. EPS nurse did the initial evaluation claims the patient was increasing her depression and also suicidal thoughts, did not give a specific plan. Patient was seen today for psychiatric consultation given the patient was covid positive however was supposed to be a 3west admitt. Patient claims that she was feeling upset, not feeling good about herself. Claims that her mother was concerned about her brother into the hospital. She states that she is admitted about 4 months ago to the mental health unit. Claims that she was started on medications they are and it helped initially however claims that they're not helping much anymore and states "she has been going to [facility] and seeing Dr. Andrade however was not able to get a therapist and was stating that she needs a therapist at this time to help with her issues. She states that her depression has been increasing, also endorsing anger issues and possible mood swings. He also did endorse possible manic episodes. She states that she has a strong family history of borderline personality disorder and also bipolar disorder and believes that she has that. She states that she has elevated anxiety, claims that she has suicidal ideations however these appear to be fairly chronic and not having them at the moment. She states that her sleep is on and off, appetite has been fair. Patient denies any auditory, visual hallucinations and denies any paranoia or delusions. Patients admits to using no recreational drugs or cigarettes. PAST PSYCHIATRIC HISTORY: Patient has a a history of borderline personality disorder, bipolar disorder. [Patient is currently on clonidine twice a day and also Effexor 150 mg daily for mood/anxiety. Patient was last psychiatrically hospitalized about 4 months ago on health unit. She claims that she is following up at [facility] with Dr. Andrade is her psychiatrist. She claims that she does not have the therapists at this time. Claims that she overdosed about 7 years ago on pills. Past Medical History: No Reported History Additional Past Medical History / Comment(s): conduct disorder, mood disorder History of Any Multi-Drug Resistant Organisms: None Reported Past Surgical History: No Surgical Hx Reported Past Psychological History: ADD/ADHD, Anxiety, Bipolar, PTSD Smoking Status: Never smoker Past Alcohol Use History: None Reported Past Drug Use History: None Reported ALLERGIES: as per EMR. CHEMICAL DEPENDENCY HISTORY: as per HPI. FAMILY PSYCHIATRIC/SUBSTANCE USE HISTORY: She has an extensive family history of mental health issues including her mother who has borderline, bipolar disorder, depression and anxiety, her brother has OCD, her sister has anxiety and states that her father has bipolar disorder. SOCIAL HISTORY: Patient was born and raised in [place] and also in [place] [place]. Claims that she dropped out of school in the 10th grade. States that she is currently unemployed and has not worked. She states that she did go to [facility] at the age of [age] years old. Currently she lives with her boyfriend in apartment MENTAL STATUS EXAM: General Appearance: Patient appears to be thin, curly dark hair, stated age is alert,directable and attempts to cooperate. Patient appears to have [fair] hygi fredy and grooming wearing hospital gown with [fair] eye contact. Behavior: [Patient is calmly lying in bed without any agitated behavior.] Attempts to cooperate Speech: Patient's speech is fluent and nonpressured. Mood/Affect: Patient reports their mood is "[depressed and anxious]", affect is congruent and Constricted Suicidality/Homicidality: Patient denies having any suicidal or homicidal trina ation intent or plan. Perceptions: Patient denies any visual hallucinations [and denies any auditory hallucinations] Though content/process: There is no evidence of any delusional thought content and thought process is linear and goal-directed. focvused on her diagnosis and the medications. Memory and concentration: AOX3, grossly intact for the purposes of this session. Can spell "WORLD" backwards Judgment and insight: poor IMPRESSIONS: Bipolar disorder current episode depression borderline personality disorder PLAN: -At this time patient DOES meet criteria for inpatient psychiatric admission HOWEVER due to patient being covid positive patient is not able to be admitted onto the unit at this time and will remain a medical admitt with psychiatry following for med mgt. -Would recommend the following medication changes/additions: Increase Effexor 225 mg daily for mood/anxiety, patient is agreeable to try Lamictal 25 mg twice a day for mood stabilization/depression, trazodone 50 mg daily at bedtime when necessary for insomnia. Vistaril when necessary for anxiety. Clonidine 0.1 mg twice a day as her home dose -Continue 1:1 sitter for safety as patient is currently a psych hold. -patient will need to have [facility] appointment in place prior to discharge. -Communicated plan to patient's nurse -Will continue to follow along for further med mgt and treatment. -Please contact with any questions.
[2023-04-30] MEDS: lamoTRIgine 25 MG TAB PO SCH ×2 (15:03→20:19)
[2023-04-30] MEDS ORDERED: NALOXONE 0.4 MG/ML 1 ML VIAL IV PRN (15:05)
--- NOTE | 2023-04-30 17:08 | P.HPIM ---
History of Present Illness H&P Date: 04/30/23 History of Presenting Illness: Patient is a pleasant 18-year-old female with a past medical history of bipolar disorder, borderline personality disorder, depression, and previous suicide attempt. She presented to the emergency department with a chief complaint of suicidal ideations. Patient reports that she has medications and alcohol in her home and she was contemplating on taking these in an attempt to kill herself. Patient was initially evaluated in the emergency department and accepted for admission to mental health unit. However patient flaps resulting positive for Covid and therefore patient to be admitted to the hospital under our services until cleared by psychiatry to go to their unit. Psychiatry to follow patient throughout hospitalization. Patient did undergo extensive testing in the emergency department. Labs were reviewed. CBC and BMP unremarkable. Urinalysis negative for infection. Urine hCG negative for . Urine drug screen negative. Covid PCR positive. Review of systems: Pertinent positives and negatives as discussed in HPI, a complete review of systems was performed and all other systems are negative. Physical exam: Vital signs reviewed and stable. General: Nontoxic, no distress and appears stated age. Derm: Skin warm and dry, normal coloration for ethnicity. Head: Atraumatic, normocephalic and symmetric. Eyes: EOMs intact, no lid lag, and anicteric sclera Mouth: no lip lesions, mucus membranes moist Cardiovascular: regular rate and rhythm with normal S1S2, no murmur, positive posterior tibial pulses bilaterally, and cap refill < 2 seconds. Lungs: Respirations even, regular, and unlabored on room air. Lungs CTA bilaterally, no rhonchi, no rales, no wheezing, and no accessory muscle usage. Abdominal: soft, nontender to palpation, no guarding, no appreciable organomegaly Ext: ROM intact. No gross muscle atrophy, no edema, no contractures Neuro: Speech clear, face symmetrical and CN II-XII grossly intact with no noted focal neuro deficits Psych: Alert and oriented to person, place, time, and situation. Appropriate and pleasant affect. Assessment and Plan of Care: COVID 19 infection -Patient reports feeling nasal congestion and stuffiness otherwise asymptomatic denying any shortness of breath, cough, fevers, chills, nausea, or vomiting. -Order placed for Flonase 2 sprays each nostril daily. -DVT prophylaxis with Lovenox. -Strict Droplet plus Contact precautions - Labs were reviewed. CBC and BMP unremarkable. Urinalysis negative for infection. Urine hCG negative for . Urine drug screen negative. Covid PCR positive.. Suicidal ideations Bipolar disorder Borderline personality disorder Depression Management per psychiatry team. Maintain suicide precautions with one-to-one sitter at all times. CODE STATUS: Full code DVT prophylaxis: Lovenox Discussed with: Patient, RN, in ED physician Anticipated discharge date: Clinical course to determine Anticipated discharge place: Inpatient psychiatric unit Patient was seen independently by Nurse Practitioner. This document was prepared using [employer] dictation software. Please allow for errors in preparatory technician while rare they do occur. Dagoberto Easton NP rendered care for this patient independently, reviewed the findings and plan as documented in the note above. I did not physically speak with or examine the patient on this date. Past Medical History Past Medical History: No Reported History Additional Past Medical History / Comment(s): conduct disorder, mood disorder History of Any Multi-Drug Resistant Organisms: None Reported Past Surgical History: No Surgical Hx Reported Past Psychological History: ADD/ADHD, Anxiety, Bipolar, PTSD Smoking Status: Never smoker Past Alcohol Use History: None Reported Past Drug Use History: None Reported Medications and Allergies Home Medications Medication Instructions Recorded Confirmed Type [place]vera 1 tab PO DAILY 02/04/23 04/29/23 History cloNIDine HCL [Catapres] 0.1 mg PO BID 7 Days #14 tab 02/09/23 04/29/23 Rx Venlafaxine HCl [Effexor XR] 150 mg PO DAILY 04/29/23 04/29/23 History Allergies Allergy/AdvReac Type Severity Reaction Status Date / Time gluten AdvReac Abdominal Verified 04/29/23 14:11 Pain lactose AdvReac Abdominal Verified 04/29/23 14:11 Pain Physical Exam Vitals: Vital Signs Temp Pulse Resp BP Pulse Ox 04/30/23 08:00 98.2 F 82 17 131/82 98 04/30/23 06:15 97.7 F 66 18 112/68 98 Results CBC & Chem 7: 04/29/23 16:30 04/29/23 19:00 Labs: Abnormal Lab Results - Last 24 Hours (Table) 04/29/23 04/29/23 04/29/23 Range/Units 16:30 19:00 19:19 Glucose 130 H (74-99) mg/dL Coronavirus (PCR) Detected A (Not Detectd) SARS-CoV-2 (PCR) Detected A (Not Detectd)
[2023-05-01] MEDS: ALTAVERA PO SCH (08:10)
[2023-05-01] MEDS: VENLAFAXINE HCL ER 75 MG CAP PO SCH (08:13)
[2023-05-01] MEDS: lamoTRIgine 25 MG TAB PO SCH ×2 (08:13→21:48)
[2023-05-01] MEDS: ENOXAPARIN 40 MG/0.4 ML SYRINGE SQ SCH (08:13)
[2023-05-01] MEDS: cloNIDine HCL 0.1 MG TAB PO SCH ×2 (08:14→21:47)
[2023-05-01] MEDS: FLUTICASONE 50MCG/SPRAY NASAL 16GM EA NOSTRIL SCH (08:29)
--- NOTE | 2023-05-01 12:27 | P.PN ---
Progress Note - Text Progress Note Date: 05/01/23 Interval history: Patient was seen today for psychiatric follow-up regarding patient's bipolar and borderline personality disorder. Patient claims that she showered this morning and was snapping earlier. She claims that she is doing a bit better with regards to her mood lability and also her anxiety and depression. She states that the medications have been helping. She appears to be brighter today and her affect, was more cooperative and directable. Improvement in eye contact. She is denying any rash at this time, we spoke more about the medication side effects and with his treating. She states that she did not sleep well last night and got to bed around 4 AM. She was encouraged to try the trazodone if needed at nighttime and she was agreeable to try that. She adamantly denies any suicidal thoughts today denies any intent or plan. Denies any auditory or visual hallucinations. Sitter will be discontinued. Mental status examination: General Appearance: Patient appears to be thin, curly dark hair, stated age is alert,directable and attempts to cooperate. Patient appears to have [improving] hygiene and grooming wearing hospital gown with [fair] eye contact. Behavior: [Patient is calmly lying in bed without any agitated behavior.] More cooperative Speech: Patient's speech is fluent and nonpressured. Mood/Affect: Patient reports their mood is "better]", affect is congruent and Constricted, improving Suicidality/Homicidality: Patient denies having any suicidal or homicidal ideation intent or plan. Perceptions: Patient denies any visual hallucinations [and denies any auditory hallucinations] Though content/process: There is no evidence of any delusional thought content and thought process is linear and goal-directed. Memory and concentration: AOX3, grossly intact for the purposes of this session. Can spell "WORLD" backwards Judgment and insight: poor, improving mildly IMPRESSIONS: Bipolar disorder current episode depression borderline personality disorder PLAN: -At this time patient DOES meet criteria for inpatient psychiatric admission HOWEVER due to patient being covid positive patient is not able to be admitted onto the unit at this time and will remain a medical admitt with psychiatry following for med mgt. -Would recommend the following medication changes/additions: Effexor 225 mg daily for mood/anxiety, Lamictal 25 mg twice a day for mood stabilization/depression, trazodone 50 mg daily at bedtime when necessary for insomnia. Vistaril when necessary for anxiety. Clonidine 0.1 mg twice a day as her home dose -ok to discontinue 1:1 sitter at this time as patient is improving and not endorisng SI or HI. -patient will need to have [facility] appointment in place prior to discharge. -Communicated plan to patient's nurse -Will continue to follow along for further med mgt and treatment tomorrow and likely sign off tomorrow with [facility] f/u -Please contact with any questions.
--- NOTE | 2023-05-01 17:34 | P.PN ---
Subjective Progress Note Date: 05/01/23 Hospital course: Patient is a pleasant 18-year-old female with a past medical history of bipolar disorder, borderline personality disorder, depression, and previous suicide attempt. She presented to the emergency department with a chief complaint of suicidal ideations. Patient reports that she has medications and alcohol in her home and she was contemplating on taking these in an attempt to kill herself. Patient was initially evaluated in the emergency department and accepted for admission to mental health unit. However patient flaps resulting positive for Covid and therefore patient to be admitted to the hospital under our services until cleared by psychiatry to go to their unit. Psychiatry to follow patient throughout hospitalization. Patient did undergo extensive testing in the emergency department. Labs were reviewed. CBC and BMP unremarkable. Urinalysis negative for infection. Urine hCG negative for . Urine drug screen negative. Covid PCR positive. Patient admitted under our services with consultation to psychiatry until patient is cleared for admission to inpatient psychiatric unit. At this time psychiatric unit cannot take patient to unit secondary to positive Covid status. Physical exam: Vital signs reviewed and stable. General: Nontoxic, no distress and appears stated age. Derm: Skin warm and dry, normal coloration for ethnicity. Head: Atraumatic, normocephalic and symmetric. Eyes: EOMs intact, no lid lag, and anicteric sclera Mouth: no lip lesions, mucus membranes moist Cardiovascular: regular rate and rhythm with normal S1S2, no murmur, positive posterior tibial pulses bilaterally, and cap refill < 2 seconds. Lungs: Respirations even, regular, and unlabored on room air. Lungs CTA bilaterally, no rhonchi, no rales, no wheezing, and no accessory muscle usage. Abdominal: soft, nontender to palpation, no guarding, no appreciable organomegaly Ext: ROM intact. No gross muscle atrophy, no edema, no contractures Neuro: Speech clear, face symmetrical and CN II-XII grossly intact with no noted focal neuro deficits Psych: Alert and oriented to person, place, time, and situation. Appropriate and pleasant affect. Assessment and Plan of Care: COVID 19 infection -Patient reports feeling nasal congestion and stuffiness otherwise asymptomatic denying any shortness of breath, cough, fevers, chills, nausea, or vomiting. -Order placed for Flonase 2 sprays each nostril daily. -DVT prophylaxis with Lovenox. -Strict Droplet plus Contact precautions - Labs were reviewed. CBC and BMP unremarkable. Urinalysis negative for infection. Urine hCG negative for . Urine drug screen negative. Covid PCR positive.. Suicidal ideations Bipolar disorder Borderline personality disorder Depression Management per psychiatry team. Maintain suicide precautions with one-to-one sitter at all times. Data reviewed: Vital signs reviewed and stable. Blood pressure 126/84, heart rate 104, respiratory rate 16, temp 98.2F, SpO2 of 90% on room air. CODE STATUS: Full code DVT prophylaxis: Lovenox Discussed with: Patient and RN Anticipated discharge date: Clinical course to determine Anticipated discharge place: Inpatient psychiatric unit Patient was seen independently by Nurse Practitioner. This document was prepared using [employer] dictation software. Please allow for errors in metalizing machine operator while rare they do occur. Dagoberto Easton NP rendered care for this patient independently, reviewed the findings and plan as documented in the note above. I did not physically speak with or examine the patient on this date. Objective - Vital Signs Vital signs: Vital Signs Temp 98.0 F 05/01/23 02:00 Pulse 92 05/01/23 02:00 Resp 18 05/01/23 02:00 BP 136/90 05/01/23 02:00 Pulse Ox 99 05/01/23 02:00 FiO2 Intake & Output 04/30/23 05/01/23 05/01/23 18:59 06:59 18:59 Weight 55.338 kg Other: # Voids 3 - Labs CBC & Chem 7: 04/29/23 16:30 04/29/23 19:00
[2023-05-02] MEDS: ENOXAPARIN 40 MG/0.4 ML SYRINGE SQ SCH (07:07)
[2023-05-02] MEDS: VENLAFAXINE HCL ER 75 MG CAP PO SCH (07:12)
[2023-05-02] MEDS: FLUTICASONE 50MCG/SPRAY NASAL 16GM EA NOSTRIL SCH (07:13)
[2023-05-02] MEDS: cloNIDine HCL 0.1 MG TAB PO SCH (07:13)
[2023-05-02] MEDS: ALTAVERA PO SCH (07:14)
[2023-05-02] MEDS: lamoTRIgine 25 MG TAB PO SCH (07:14)
--- NOTE | 2023-05-02 13:08 | P.PN ---
Progress Note - Text Progress Note Date: 05/02/23 Interval history: Patient was seen today for psychiatric follow-up regarding patient's bipolar and borderline personality disorder. Patient states that she is doing a bit better today. She claims that her sleep was "on and off" last night. She states that she is mainly disturbed from being in the hospital. Asphalt Paving Supervisor asked about the trazodone and patient states that she does not want to take it and wants to reduce the medications that she is on. She states that the clonidine helps her enough with sleep and she will take that at home. She denied any other issues and states that her anxiety and mood have been more stable. She denies any changes with her appetite or energy level. She appears more future oriented today, we spoke about follow-up with [facility] which she is okay with that and one to 2 weeks. She is denying any rash at this time and was again informed of the adverse effects of the medication Lamictal and to discontinue treatment if this does occur. She denies any suicidal or homicidal thoughts today denies any intent or plan. Denies any auditory or visual hallucinations. Mental status examination: General Appearance: Patient appears to be thin, curly dark hair, stated age is alert, directable and attempts to cooperate. Patient appears to have [improving] hygiene and grooming wearing hospital gown with [fair] eye contact. Behavior: [Patient is calmly lying in bed without any agitated behavior.] cooperative Speech: Patient's speech is fluent and nonpressured. Mood/Affect: Patient reports their mood is "alright", affect is congruent and Constricted, improving Suicidality/Homicidality: Patient denies having any suicidal or homicidal ideation intent or plan. Perceptions: Patient denies any visual hallucinations [and denies any auditory hallucinations] Though content/process: There is no evidence of any delusional thought content and thought process is linear and goal-directed. Memory and concentration: AOX3, grossly intact for the purposes of this session Judgment and insight: improving mildly IMPRESSIONS: Bipolar disorder current episode depression borderline personality disorder PLAN: -At this time patient DOES NOT meet criteria for inpatient psychiatric admission at this time. -Would recommend the following medication changes/additions: Effexor 225 mg daily for mood/anxiety, Lamictal 25 mg twice a day for mood stabilization/depression, senior grant writer again reiterated the importance to monitor for a rash and to stay consisten with compliance, pt verbally understood and agreed. d/c trazodone as patient is not willing to take it. Clonidine 0.1 mg twice a day as her home dose -Communicated plan to patient's nurse -Will sign off today and pt can f/u with [facility] in 1-2 weeks. -Please contact with any questions.
[2023-05-02 13:28] LABS: HCT 43.3 % (37.2-46.3); HGB 14.4 d/dL (12.0-15.0); MCHC 33.3 d/dL (32.0-37.0); MCV 93.1 FL (80.0-97.0); Mean Platelet Volume 13.2 FL (9.5-12.2); NRBC Per 100 WBC 0 X 10*3/uL (0.00-0.01); Platelet Count 184 X 10*3/uL (140-440); RBC 4.65 X 10*6/uL (4.10-5.20); RDW 12.1 % (11.5-14.5); WBC 6.02 X 10*3/uL (4.50-10.00)
[2023-05-02 13:46] LABS: ALT 21 U/L (8-44); AST 18 U/L (13-35); Albumin 4.4 d/dL (3.8-4.9); Albumin/Globulin Ratio 1.52 Ratio (1.60-3.17); Alkaline Phosphatase 58 U/L (41-126); BUN/Creat Ratio 12.11 Ratio (12.00-20.00); Blood Urea Nitrogen 10.9 mg/dL (9.0-27.0); Calcium 9.9 mg/dL (8.7-10.3); Carbon Dioxide 23.9 mmol/L (21.6-31.8); Chloride 101 mmol/L (96-109); Globulin 2.9 d/dL (1.6-3.3); Glucose 75 mg/dL (70-110); Potassium 4.5 mmol/L (3.5-5.5); Sodium 137 mmol/L (135-145); Total Bilirubin 0.3 mg/dL (0.3-1.2); Total Protein 7.3 d/dL (6.2-8.2)
[2023-05-02 14:33] VITALS: BP 101/65; PULSE 85; RESP 18; TEMP 98.4
--- NOTE | 2023-05-02 15:09 | P.DS ---
Providers Date of admission: 04/30/23 15:06 Expected date of discharge: 05/02/23 Attending physician: Jasbir Witt MD Consults: 04/30/23 12:24 Consult Physician Stat Consulting Provider: Adolfo Wilkinson Consult Reason/Comments: covid + psych admit Do you want consulting provider notified?: Yes [facility] Hospital Course: Discharge Diagnosis: COVID 19 infection, asymptomatic at time of discharge. Suicidal ideations, patient was evaluated by psychiatrist daily. On 05/02/23 patient was cleared from psychiatric team stating patient does not meet criteria for inpatient admission at this time. Medically, patient is stable for discharge with no medical needs to hold patient in hospital. Psychiatrist recommending patient to continue Effexor 225 mg daily for treatment of mood/anxiety and started patient on Lamictal 25 mg daily for mood stabilization and depression. Patient strongly encouraged to follow-up outpatient with [facility] in 1 week as discussed. Bipolar disorder Borderline personality disorder Depression Hospital Course: Patient is a pleasant 18-year-old female with a past medical history of bipolar disorder, borderline personality disorder, depression, and previous suicide attempt. She presented to the emergency department on 04/30/23 with a chief complaint of suicidal ideations. Patient reports that she has medications and alcohol in her home and she was contemplating on taking these in an attempt to kill herself. Patient was initially evaluated in the emergency department and accepted for admission to mental health unit. However patient flaps resulting positive for Covid and therefore patient to be admitted to the hospital under our services until cleared by psychiatry to go to their unit. Psychiatry to follow patient throughout hospitalization. Patient did undergo extensive testing in the emergency department. Labs were reviewed. CBC and BMP unremarkable. Urinalysis negative for infection. Urine hCG negative for . Urine drug screen negative. Covid PCR positive. Patient admitted under our services with consultation to psychiatry until patient is cleared for admission to inpatient psychiatric unit. At this time psychiatric unit cannot take patient to unit secondary to positive Covid status. Patient was admitted to the hospital and psychiatry evaluated and made changes to patient's daily medication regimen. On 05/02/23 patient was cleared from psychiatric team stating patient does not meet criteria for inpatient admission at this time. Medically, patient is stable for discharge with no medical needs to hold patient in hospital. Psychiatrist recommending patient to continue Effexor 225 mg daily for treatment of mood/anxiety and started patient on Lamictal 25 mg daily for mood stabilization and depression. Patient strongly encouraged to follow-up outpatient with [facility] in 1 week as discussed. Physical exam: Vital signs reviewed and stable. General: Nontoxic, no distress and appears stated age. Derm: Skin warm and dry, normal coloration for ethnicity. Head: Atraumatic, normocephalic and symmetric. Eyes: EOMs intact, no lid lag, and anicteric sclera Mouth: no lip lesions, mucus membranes moist Cardiovascular: regular rate and rhythm with normal S1S2, no murmur, positive posterior tibial pulses bilaterally, and cap refill < 2 seconds. Lungs: Respirations even, regular, and unlabored on room air. Lungs CTA bilaterally, no rhonchi, no rales, no wheezing, and no accessory muscle usage. Abdominal: soft, nontender to palpation, no guarding, no appreciable organomegaly Ext: ROM intact. No gross muscle atrophy, no edema, no contractures Neuro: Speech clear, face symmetrical and CN II-XII grossly intact with no noted focal neuro deficits Psych: Alert and oriented to person, place, time, and situation. Appropriate and pleasant affect. A total of 31 minutes of time were spent preparing this complex discharge summary. Pt was discharged on 05/02/23 at 3:06 PM. Patient was seen independently by Nurse Practitioner. This document was prepared using [employer] dictation software. Please allow for errors in equities trader while rare they do occur. Dagoberto Easton NP rendered care for this patient independently, reviewed the findings and plan as documented in the note above. I did not physically speak with or examine the patient on this date. Patient Condition at Discharge: Stable Plan - Discharge Summary Discharge Rx Participant: No New Discharge Prescriptions: New Venlafaxine HCl ER [Effexor XR] 225 mg PO DAILY 30 Days #30 cap lamoTRIgine [LaMICtal] 25 mg PO BID 30 Days #60 tab Continue Altavera 1 tab PO DAILY cloNIDine HCL [Catapres] 0.1 mg PO BID 7 Days #14 tab Discontinued Venlafaxine HCl [Effexor XR] 150 mg PO DAILY Discharge Medication List Altavera 1 tab PO DAILY 02/04/23 [History] cloNIDine HCL [Catapres] 0.1 mg PO BID 7 Days #14 tab 02/09/23 [Rx] Venlafaxine HCl ER [Effexor XR] 225 mg PO DAILY 30 Days #30 cap 05/02/23 [Rx] lamoTRIgine [LaMICtal] 25 mg PO BID 30 Days #60 tab 05/02/23 [Rx] Follow up Appointment(s)/Referral(s): Geo Turk MD [Primary Care Provider] - 1-2 days Patient Instructions/Handouts: Depression (DC), How To Wash Your Hands (DC), COVID-19 (Coronavirus Disease 2019) (DC), Face Coverings (Masks) and COVID-19 (DC), Social Distancing Guidelines for COVID-19 (DC) Activity/Diet/Wound Care/Special Instructions: Activity: As tolerated. Diet: Regular diet. Special Instructions: Take all of your medications as directed and remember to keep all of your doctor's appointments and follow-up as needed. Medically, your cleared for discharge home. The psychiatry team has evaluated and made some medication changes including increasing her Effexor to 225 mg daily and adding on Lamictal 25 mg twice daily. They have cleared you from inpatient psychiatric hospitalization and recommending outpatient follow-up with [facility] this week. Thank you for allowing us to participate in your care, it was truly a pleasure having you for our patient!!! Discharge/Stand Alone Forms: Who Do I Call?, Outpatient Counseling, Community Resources Discharge Disposition: HOME SELF-CARE
== END 2023-05-02 15:31 | disposition home or self-care (01) ==
LOC: EC 11:40 → 6NMEDSUR 04-30 15:06 → 4SSUR 04-30 18:52
PROVIDERS: ADMIT Internal Medicine; ATTEND Internal Medicine
DX: R45.851 Suicidal ideations (principal); F32.9 Major depressive disorder, single episode, unspecified; U07.1 COVID-19; F60.3 Borderline personality disorder; F90.9 Attention-deficit hyperactivity disorder, unspecified type; F43.10 Post-traumatic stress disorder, unspecified; Z56.0 Unemployment, unspecified; Z81.8 Family history of other mental and behavioral disorders; Z91.51 Personal history of suicidal behavior; Z79.899 Other long term (current) drug therapy
CPT/HCPCS: 82075; 99285; 36415; 80053; 80048; 85027 ×2; 81003; 81025; 80306; 87635; 87636; G0378 ×4